=== PATIENT | male | born 1995 | race Caucasian/White ===

== ENCOUNTER 2018-12-02 15:47 | Emergency (ER) | payer OTHER ==
[~2018-12-02] VITALS: Ht 170.2 cm; Wt 81.8 kg
[2018-12-02] MEDS ORDERED: POVIDONE-IODINE 10% 15 ML SOLUTION UD TP ONE (17:15)
[2018-12-02] MEDS ORDERED: KETOROLAC TROMETHAMINE 60 MG/2 ML VIAL IM ONE (17:15)
[2018-12-02] MEDS ORDERED: CLINDAMYCIN HCL 150 MG CAPSULE PO ONE (17:15)
[2018-12-02] MEDS ORDERED: BACITRACIN 0.9 GM PACKET OINTMENT TP ONE (17:15)
[2018-12-02 19:10] VITALS: BP 134/79
== END 2018-12-02 19:34 | disposition home or self-care (01) ==
LOC: EMS 15:49
DX: S90.02XA Contusion of left ankle, initial encounter (principal); Z88.1 Allergy status to other antibiotic agents; W18.40XA Slipping, tripping and stumbling without falling, unspecified, initial encounter; Y93.89 Activity, other specified; Y92.89 Other specified places as the place of occurrence of the external cause; Y99.8 Other external cause status
CPT/HCPCS: 73590; 73610; 96372; 99283; J1885

== ENCOUNTER 2024-09-24 09:03 | Emergency (ER) | payer OTHER ==
[~2024-09-24] VITALS: Ht 170.2 cm; Wt 100.0 kg
[2024-09-24 09:37] VITALS: TEMP 98
[2024-09-24] MEDS ORDERED: ACETAMINOPHEN/CODEINE 300-30 MG TABLET PO ONE (10:30)
[2024-09-24] MEDS: PERTUSS(ACELL),DIPH,TET/PF 0.5 ML SYRINGE [ADULT] IM. ONE (10:40)
[2024-09-24] MEDS: IBUPROFEN 600 MG TABLET PO ONE (10:40)
[2024-09-24] MEDS ORDERED: HYDR-4062 PO (11:45)
[2024-09-24] MEDS ORDERED: IBUP-1554 PO (11:45)
[2024-09-24 12:00] VITALS: BP 146/77; PULSE 68; RESP 17; O2SAT 100
== END 2024-09-24 12:15 | disposition home or self-care (01) ==
LOC: EMS 09:03
DX: S62.642A Nondisplaced fracture of proximal phalanx of right middle finger, initial encounter for closed fracture (principal); Z88.0 Allergy status to penicillin; X58.XXXA Exposure to other specified factors, initial encounter; Y93.89 Activity, other specified; Y92.89 Other specified places as the place of occurrence of the external cause; Y99.8 Other external cause status
CPT/HCPCS: 90471; 90715; 99283

== ENCOUNTER 2024-12-09 08:48 | Emergency (ER) | payer OTHER ==
[~2024-12-09] VITALS: Ht 170.2 cm; Wt 104.0 kg
[~2024-12-09 08:48] MED LIST: HYDR-4062 PO; IBUP-1554 PO
[2024-12-09 08:56] VITALS: TEMP 97.9
[2024-12-09] MEDS: ONDANSETRON HCL 4 MG/2 ML VIAL IVP ONE (09:51)
[2024-12-09] MEDS: SODIUM CHLORIDE 0.9% 1,000 ML IV ONE (09:51)
[2024-12-09 09:56] LABS: PLATELET COUNT (AUTO) 308 K/uL (150-450); RED BLOOD CELL COUNT(AUTO) 5.66 MIL/uL (4.50-5.90); RED CELL DISTRIBUTION WIDTH 13.4 % (11.5-14.5); WHITE BLOOD COUNT (AUTO) 10.4 K/uL (4.5-11.0)
[2024-12-09 10:02] LABS: COVID AG,FIA SOURCE NASAL SWAB
[2024-12-09 10:04] LABS: CALCIUM, TOTAL 8.9 mg/dL (8.8-10.5); CREATININE 1.23 mg/dL (0.60-1.30); GLOMERULAR FILTR. RATE CALC > 60 mL/min (>60); GLUCOSE,RANDOM 144 mg/dL (70-110); SODIUM SERUM 139 mmol/L (136-145); UREA NITROGEN, BLOOD 10 mg/dL (7-18)
[2024-12-09 10:12] LABS: ASPARTATE AMINOTRANSFERASE 18.0 U/L (15-37); TOTAL PROTEIN, SERUM 7.7 g/dL (6.4-8.2)
[2024-12-09] MEDS: METOCLOPRAMIDE HCL 5 MG/ML 2 ML VIAL IVP ONE (10:24)
[2024-12-09 10:28] LABS: SARS-COV2 (COVID) ANTIGEN,FIA Negative (Negative)
[2024-12-09] MEDS: OMEPRAZOLE 20 MG CAPSULE PO ONE (12:19)
[2024-12-09 13:00] VITALS: BP 129/58; PULSE 58; RESP 16; O2SAT 99
[2024-12-09] MEDS ORDERED: METO-296 PO (13:48)
[2024-12-09] MEDS ORDERED: MAG30ORA11 PO (13:48)
[2024-12-09] MEDS ORDERED: OMEP-148 PO (13:48)
[2024-12-09] MEDS ORDERED: ONDA-104 PO (13:48)
== END 2024-12-09 14:18 | disposition home or self-care (01) ==
LOC: EMS 08:54
DX: K21.9 Gastro-esophageal reflux disease without esophagitis (principal); R10.11 Right upper quadrant pain; Z79.899 Other long term (current) drug therapy; Z88.0 Allergy status to penicillin; Z20.822 Contact with and (suspected) exposure to COVID-19
CPT/HCPCS: 99285; 96374; 76700; 96361; 96375; 87426; 80048; 80076; 83690; 85025; 36415; J2765; J2405; J7030

== ENCOUNTER 2024-12-11 06:47 | Emergency (ER) | payer OTHER ==
[~2024-12-11] VITALS: Ht 170.2 cm; Wt 99.8 kg
[~2024-12-11 06:47] MED LIST changes: +MAG30ORA11 PO; +METO-296 PO; +OMEP-148 PO; +ONDA-104 PO
[2024-12-11 07:24] LABS: COVID AG,FIA SOURCE NASAL SWAB
[2024-12-11 07:28] LABS: CALCIUM, TOTAL 9.0 mg/dL (8.8-10.5); CREATININE 1.45 mg/dL (0.60-1.30); GLOMERULAR FILTR. RATE CALC 57.0 mL/min (>60); GLUCOSE,RANDOM 151.0 mg/dL (70-110); SODIUM SERUM 141.0 mmol/L (136-145); UREA NITROGEN, BLOOD 14.0 mg/dL (7-18)
[2024-12-11] MEDS: METOCLOPRAMIDE HCL 5 MG/ML 2 ML VIAL IVP ONE (07:35)
[2024-12-11 07:36] LABS: PLATELET COUNT (AUTO) 326 K/uL (150-450); RED BLOOD CELL COUNT(AUTO) 5.69 MIL/uL (4.50-5.90); RED CELL DISTRIBUTION WIDTH 13.8 % (11.5-14.5); WHITE BLOOD COUNT (AUTO) 14.1 K/uL (4.5-11.0)
[2024-12-11] MEDS: SODIUM CHLORIDE 0.9% 1,000 ML IV ONE ×2 (07:36→10:17)
[2024-12-11 07:51] LABS: ASPARTATE AMINOTRANSFERASE 20.0 U/L (15-37); TOTAL PROTEIN, SERUM 7.6 g/dL (6.4-8.2)
[2024-12-11 08:08] LABS: INFLUENZA TYPE A NEGATIVE FOR TYPE A (NEGATIVE); INFLUENZA TYPE B NEGATIVE FOR TYPE B (NEGATIVE); SARS-COV2 (COVID) ANTIGEN,FIA Negative (Negative)
[2024-12-11 08:19] LABS: ABG BASE EXCESS -3.3 mmol/L (-2.0-3.0); ABG CARBOXYHEMOGLOBIN 0.8 % (0.5-1.5); ABG HCO3 23.0 mmol/L (21.0-28.0); ABG METHEMOGLOBIN 0.9 % (0.0-1.5); ABG OXYGEN CONTENT 21.8 mL/dL (15.0-23.0); ABG OXYGEN SATURATION 97.8 % (94.0-98.0); ABG OXYHEMOGLOBIN 96.1 % (94.0-98.0); ABG PCO2 29 mmHg (32.0-48.0); ABG PH 7.469 (7.350-7.450); ABG TOTAL HEMOGLOBIN 16.1 G/dL (13.5-17.5); FRACTIONATED INSPIRED OXYGEN 21.0 % (21-100.0); PO2, ARTERIAL BG 92.0 mmHg (83.0-108.0); SOURCE, BLOOD GAS ARTERIAL; TEMPERATURE, FAHRENHEIT, BG 98.0 FAHREN (96.0-98.6)
[2024-12-11 08:20] LABS: ALLEN TEST, BLOOD GAS Positive; O2 DEVICE,BLOOD GAS ROOM AIR (ROOM AIR); PATIENT RATE, BG 20.0 min.; SITE, BLOOD GAS LFT RADIAL
[2024-12-11] MEDS ORDERED: IOHEXOL 350 MG/ML 100 ML VIAL ONE (08:30)
[2024-12-11] MEDS ORDERED: SODIUM CHLORIDE 0.9% 100 ML ONE (08:30)
[2024-12-11 10:24] LABS: APPEARANCE,URINE TURBID (CLEAR); GLUCOSE, URINE (UA) NEGATIVE (NEGATIVE); LEUKOCYTE ESTERASE ,URINE NEGATIVE (NEGATIVE); NITRATE,URINE NEGATIVE (NEGATIVE); OCCULT BLOOD,URINE NEGATIVE (NEGATIVE); PH,URINE DRUG SCREEN 8.0 (5.0-8.0); SPECIFIC GRAVITIY, URINE 1.017 (1.003-1.030)
[2024-12-11 10:34] LABS: ALCOHOL, URINE DRUG SCREEN NEGATIVE (NEGATIVE); AMPHET/METH SCREEN,URINE NEGATIVE (NEGATIVE); BARBITURATE SCREEN, URINE NEGATIVE (NEGATIVE); CANNABINOID SCREEN,URINE POSITIVE (NEGATIVE); COCAINE SCREEN,URINE NEGATIVE (NEGATIVE); METHADONE SCREEN, URINE NEGATIVE (NEGATIVE)
[2024-12-11] MEDS: POTASSIUM CHLORIDE 20 MEQ ER TABLET PO ONE (11:36)
[2024-12-11 11:45] LABS: CALCIUM, TOTAL 8.1 mg/dL (8.8-10.5); CREATININE 0.79 mg/dL (0.60-1.30); GLOMERULAR FILTR. RATE CALC > 60 mL/min (>60); GLUCOSE,RANDOM 133 mg/dL (70-110); SODIUM SERUM 139 mmol/L (136-145); UREA NITROGEN, BLOOD 9 mg/dL (7-18)
[2024-12-11 11:46] LABS: PLATELET COUNT (AUTO) 291 K/uL (150-450); RED BLOOD CELL COUNT(AUTO) 5.36 MIL/uL (4.50-5.90); RED CELL DISTRIBUTION WIDTH 13.8 % (11.5-14.5); WHITE BLOOD COUNT (AUTO) 10.9 K/uL (4.5-11.0)
[2024-12-11 12:18] LABS: BAND NEUTROPHILS % (MANUAL) 0 % (0-5)
[2024-12-11 12:21] LABS: LYMPHOCYTES % (MANUAL) 9 % (22-44); MONOCYTES % (MANUAL) 4 % (2-9); SEGMENTED NEUTROPHILS % 87 % (40-70)
[2024-12-11 13:21] VITALS: TEMP 97.8
[2024-12-11 13:51] VITALS: BP 131/60; PULSE 59; RESP 18; O2SAT 100
== END 2024-12-11 13:52 | disposition home or self-care (01) ==
LOC: EMS 06:47
DX: K21.9 Gastro-esophageal reflux disease without esophagitis (principal); R11.2 Nausea with vomiting, unspecified; F12.920 Cannabis use, unspecified with intoxication, uncomplicated; Z88.0 Allergy status to penicillin; Z20.822 Contact with and (suspected) exposure to COVID-19; Z79.899 Other long term (current) drug therapy
CPT/HCPCS: 99285; 74177; 96374; 96361; 87426; 80048; 80076; 81003; 82009; 83690; 85025; 87804; 36415; 82805; 80307; 96372; Q9967; J1630; J2765; J7030; J7050